=== PATIENT | female | born 1995 | race Hispanic/Latino ===

== ENCOUNTER 2018-11-09 13:39 | Emergency (ER) | payer SELFPAY ==
--- OUTSIDE RECORDS SUMMARY | 2018-11-09 13:41 | XMS REPORT ---
:1995 [facility] Address [address] [place] [address] Dr. Mena [address] [place] [id number] Care Team Providers Name Role Phone Unavailable Unavailable Unavailable Problems This patient has no known problems. Allergies, Adverse Reactions, Alerts This patient has no known allergies or adverse reactions. Medications This patient has no known medications.
[2018-11-09 15:17] LABS: Urine Blood NEGATIVE (NEG); Urine Glucose NEGATIVE (NEG); Urine Protein 2+ (NEG); Urine Specific Gravity 1.015 (1.005-1.030); Urine pH 6.5 (5.0-7.0)
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
[2018-11-09 16:55] VITALS: TEMP 98.5
[2018-11-09 16:56] VITALS: BP 106/71; O2SAT 100
== END 2018-11-09 16:19 | disposition home or self-care (01) ==
LOC: ER 13:39
DX: O26.891 Other specified pregnancy related conditions, first trimester (principal); S80.211A Abrasion, right knee, initial encounter; V03.00XA Pedestrian on foot injured in collision with car, pick-up truck or van in nontraffic accident, initial encounter; Y93.01 Activity, walking, marching and hiking; Y92.481 Parking lot as the place of occurrence of the external cause; Z3A.13 13 weeks gestation of pregnancy
CPT/HCPCS: 76801; 81003; 81025; 99284

== ENCOUNTER 2021-10-01 11:33 | Emergency (ER) | payer BC, SELFPAY ==
--- OUTSIDE RECORDS SUMMARY | 2021-10-01 11:39 | XMS REPORT | Continuity of Care Document ---
:1995 Author Organization [facility] t Address [address] [place] [address] Care Team Providers Name Role Phone Vivian BARRIGA Attending Clinician Unavailable Konrad Baker Attending Clinician Unavailable Gutierrez Hopper DO Attending Clinician Konrad CHU Attending Clinician Unavailable Paris GOMEZ Attending Clinician Unavailable Anene STRAPPER OPERATOR Attending Clinician [address] Attending Clinician Unavailable Kalie Fields Attending Clinician Kalie DOLAN Attending Clinician Unavailable Birdie STRAPPER OPERATOR Attending Clinician Nithya STRAPPER OPERATOR, N Attending Clinician AKINKARSTEN C Attending Clinician Unavailable Rey VALE, July Attending Clinician Vlad ARCEO, R Attending Clinician Enrrique RUTLEDGE C Attending Clinician Екатерина Hopper MD Attending Clinician Doctor Unassigned, Name Attending Clinician Unavailable Morgan VALE Attending Clinician Reddy VALE M Attending Clinician MORGAN Attending Clinician Unavailable Ultrasound Attending Clinician Unavailable Konrad Kraft Attending Clinician Lab Attending Clinician Unavailable Zain Admitting Clinician Unavailable Екатерина Hopper MD Admitting Clinician Екатерина Blakely MD Admitting Clinician Екатерина BLAKELY Admitting Clinician Unavailable Payers Payer Name Policy Type Policy Number Effective Date Expiration Date Ofe [employer] HMO [id number] 2019 00:00:00 FAMILY PLANNING [id number] 2019 MARTINEZ 0-100% 00:00:00 Problems Condition Condition Condition Status Onset Resolution Last Treating Co mments Source Name Details Category Date Date Treatment Clinician Date Disease Active 2020-0 U nivers anemia anemia 3-13 ity of 00:00: [place] [address] [facility] [place] Encounter Encounter Disease Active 2020-0 Uni vers for for 3-13 ity of initial initial 00:00: [place] prescripti prescripti 00 Me dical on of on of Branch contracept contracept aldo pills aldo pills Anemia of Anemia of Disease Active 2019-0 Uni vers mother in mother in 1-29 ity of , , [place] 00 [facility] with with Branch condition condition Uterine Uterine Disease Active 2019-0 Univers contractio contractio 1-28 [place] 00:[place] 00 [facility] 39 weeks 39 weeks Disease Active 2020-0 Unive rs gestation gestation 1-28 ity of of of 00:00: [place] 00 [facility] Single Single Disease Active 2020-0 Univers live live 1-28 ity of 00:00: [address] First First Disease Active 2020-0 Univers degree degree 1-28 ity of laceration laceration 00:[place] of of 00 [facility] perineum perineum Branch during during delivery, delivery, Obesity Obesity Disease Active 2018-04 Univers (BMI (BMI 1-18 ity of 30-39.9) 30-39.9) 00:00: [address] Flu Flu Disease Active 2018-04 Overview: Univer s vaccine vaccine 1-12 Received ity of need need 00:00: today [address] Vaginal Vaginal Disease Active 2018-04 Univers bleeding bleeding 0-30 ity of in in 00:00: [place] 00 [facility] Pain of Pain of Disease Active 2019- Univers round round 9-04 ity of ligament ligament 00:00: [place] affecting affecting 00 [facility] , , Br anch antepartum antepartum Suspected Suspected Disease Active Overview: Univers UTI UTI 6-10 Per ity of 00:00: [place] 00 chao [facility] Supervisio Supervisio Disease Active U nivers n of n of 5-28 ity of high-risk high-risk 00:[place] [facility] Multiparit Multiparit Disease Active U nivers y y 5-28 ity of 00:00: [place] 00 [facility] Obesity in Obesity in Disease Active U nivers 5-15 ity of 00:00: [address] Disease Active Overview: Univer s (normal (normal 2-18 Post term ity o f spontaneou spontaneou 00:00: [place] vaginal s vaginal 00 ; [facility] delivery) delivery) periureth B ranch ral lac repaired Allergies, Adverse Reactions, Alerts Allergy Allergy Status Severity Reaction(s) Onset Inactive Treating Comm ents Source Name Type Date Date Clinician No Known DA Active [facility] 8[facility]03 [place] [facility] No Known DA Active U [facility] All[facility]ie 8-03 [place] 00:[facility] NO KNOWN Drug Active Univers ALLERGIE Class ity of S [facility] Social History Social Habit Start Date Stop Date Quantity Comments Source ASSERTION 2018-08-27 University of 00:00:00 [facility] Tobacco use and 2020-05-26 2020-05-26 Never used Universit y of exposure 00:00:00 00:00:00 [facility] Alcohol intake 2020-05-26 2020-05-26 Current University of 00:00:00 00:00:00 non-drinker of [facility] [place] [facility] alcohol Branch (finding) Alcohol Comment 2017-08-29 2017-08-29 on occasion Universi ty of 00:00:00 00:00:00 [facility] Tobacco Comment 2012-12-18 2012-12-18 dad smokes Universit y of 00:00:00 00:00:00 outside house [facility] Sex Ass[birth year] At [birth year] Universit y of 00:00:00 00:00:00 [facility] Smoking Status Start Date Stop Date Source Never smoker [facility] Medications Ordered Filled Start Stop Current Ordering Indication Dosage Frequency Signature Comments Components Source Medication Medication Date Date Medication? Clinician (SIG) Name Name jessica 2019- No [id number] 5mL Take 5 mL Univers mine-pseudo 4-13 by mouth 4 i ty of ephedrine-D 00:00: 04:59 (four) [place] as M (BROMFED 00 :00 times Medical DM) 2-30-10 daily as Bran ch mg/5 mL needed for syrup Cold symptoms or Cough for up to 10 days. bromphenira 2020-0 2019- No [id number] 5mL Take 5 mL Univers mine-pseudo 4-13 by mouth 4 i ty of ephedrine-D 00:00: 04:59 (four) [place] as M (BROMFED 00 :00 times Medical DM) 2-30-10 daily as Bran ch mg/5 mL needed for syrup Cold symptoms or Cough for up to 10 days. bromphenira 2019-0 2019- No [id number] 5mL Take 5 mL Univers mine-pseudo 4-05 21-13 by mouth 4 i ty of ephedrine-D 00:00: 04:59 (four) [place] as M (BROMFED 00 :00 times Medical DM) 2-30-10 daily as Bran ch mg/5 mL needed for syrup Cold symptoms or Cough for up to 10 days. bromphenira 2019-0 2019- No [id number] 5mL Take 5 mL Univers mine-pseudo -13 by mouth 4 i ty of ephedrine-D 00:00: 04:59 (four) [place] as M (BROMFED 00 :00 times Medical DM) 2-30-10 daily as Bran ch mg/5 mL needed for syrup Cold symptoms or Cough for up to 10 days. bromphenira 2020-0 2019- No [id number] 5mL Take 5 mL Univers mine-pseudo 4-05 21-13 by mouth 4 i ty of ephedrine-D 00:00: 04:59 (four) [place] M (BROMFED 00 :00 times Medical DM) 2-30-10 daily as Bran ch mg/5 mL needed for syrup Cold symptoms or Cough for up to 10 days. norethindro 2020-0 Yes [id number] 1{tbl} Take 1 Univers ne 0.35 mg 3-13 tablet by ity of tablet 00:00: mouth [place] 00 daily. [facility] norethindro 2020-0 Yes [id number] 1{tbl} Take 1 Univers ne 0.35 mg 3-13 tablet by ity of tablet 00:00: mouth [place] 00 daily. [facility] norethindro 2020-0 Yes [id number] 1{tbl} Take 1 Univers ne 0.35 mg 3-13 tablet by ity of tablet 00:00: mouth [place] 00 daily. [facility] norethindro 2020-0 Yes [id number] 1{tbl} Take 1 Univers ne 0.35 mg 3-13 tablet by ity of tablet 00:00: mouth [place] 00 daily. [facility] norethindro 2020-0 Yes [id number] 1{tbl} Take 1 Univers ne 0.35 mg 3-13 tablet by ity of tablet 00:00: mouth [place] 00 daily. [facility] norethindro 2020-0 Yes [id number] 1{tbl} Take 1 Univers ne 0.35 mg 3-13 tablet by ity of tablet 00:00: mouth [place] 00 daily. [facility] norethindro 2020-0 Yes [id number] 1{tbl} Take 1 Univers ne 0.35 mg 3-13 tablet by ity of tablet 00:00: mouth [place] 00 daily. [facility] norethindro 2020-0 Yes [id number] 1{tbl} Take 1 Univers ne 0.35 mg 3-13 tablet by ity of tablet 00:00: mouth [place] 00 daily. [facility] norethindro 2020-0 Yes [id number] 1{tbl} Take 1 Univers ne 0.35 mg 3-13 tablet by ity of tablet 00:00: mouth [place] 00 daily. [facility] norethindro 2020-0 Yes [id number] 1{tbl} Take 1 Univers ne 0.35 mg 3-13 tablet by ity of tablet 00:00: mouth [place] 00 daily. [facility] rho(D) 2020-0 Yes 300ug 300 mcg, Univer s immune 1-29 Intramuscu ity of globulin 06:23: lar, ONCE, [place] as (RHOGAM) 16 For 1 Medical syringe 300 dose, Branch mcg Conditiona l, Routine ibuprofen 2020-0 Yes 600mg 600 mg, Univ ers (IBU) 05-15 Oral, ity of tablet 600 06:23: Q6HPRN, [place] mg 12 Starting Medical Wed Branch 05/15/19 at 0023, Until Discontinu ed, Routine, Pain (scale 4-6) acetaminoph 2020-0 Yes 650mg 650 mg, Un sixto en 05-15 Oral, ity of (TYLENOL) 06:23: Q6HPRN, [place] tablet 650 12 Starting Medic al mg Wed Branch 05/15/19 at 0023, Until Discontinu ed, Routine, Pain (scale 1-3) diphenhydrA 2020-0 Yes 25mg 25 mg, Univ ers MINE 05-15 Oral, ity of (BENADRYL) 06:23: Q6HPRN, [place] tablet 25 12 Starting Medica l mg Wed Branch 05/15/19 at 0023, Until Discontinu ed, Routine, Sleep, Itching ondansetron 2020-0 Yes 4mg 4 mg, Slow Univers (ZOFRAN 05-15 IV Push, ity of (PF)) 06:23: Q8HPRN, [place] injection 4 12 Starting Medi flavio mg Wed Branch 05/15/19 at 0023, Until Discontinu ed, Routine, Nausea and Vomiting (N/V) simethicone 2020-0 Yes 160mg 160 mg, Un sixto (GAS RELIEF 05-15 Oral, ity of (SIMETHICON 06:23: PC+HSPRN, [place] E)) 12 Starting Medical chewable Wed Branch tablet 160 05/15/19 at mg 0023, Until Discontinu ed, Routine, Gas docusate 2020-0 Yes 240mg 240 mg, Unive rs calcium 05-15 Oral, ity of (SURFAK) 06:23: QDAILYPRN, [place] capsule 240 12 Starting Medi flavio mg Wed Branch 05/15/19 at 0023, Until Discontinu ed, Routine, Constipati on magnesium 2020-0 Yes 30mL 30 mL, Univer s hydroxide 05-15 Oral, ity of (MILK OF 06:23: QDAILYPRN, [place] as MAGNESIA) 12 Starting Medica l 400 mg/5 mL Wed Branch suspension 1/29/20 at 30 mL 0023, Until Discontinu ed, Routine, Constipati on benzocaine- 2020-0 Yes Topical, Un sixto menthol 1-29 PRN, ity of (DERMOPLAST 06:23: [place] 20-0.5 % 12 Wed Medical topical 05/15/19 at Branch spray 0023, Until Discontinu ed, Routine, Perineum discomfort docusate 2020-0 Yes [id number] 240mg Take 1 Un sixto calcium 240 1-29 capsule by it y of mg capsule 00:00: mouth [place] 00 daily as Medical needed for Branch Constipati on. ibuprofen 2020-0 Yes [id number] 600mg Take 1 U nivers 600 mg 1-29 tablet by ity of tablet 00:00: mouth [place] 00 every 6 Medical (six) Branch hours as needed (Pain). Take with food or milk. Iron Fum & 2020-0 Yes [id number] 1{capsu Take 1 Univers P-FA-Vit B 1-29 le} capsule by ity of & C No.9 00:00: mouth [place] (INTEGRA 00 daily. Medical PLUS) 125 Branch mg iron- 1 mg Cap docusate 2020-0 Yes [id number] 240mg Take 1 Un sixto calcium 240 1-29 capsule by it y of mg capsule 00:00: mouth [place] 00 daily as Medical needed for Branch Constipati on. ibuprofen 2020-0 Yes [id number] 600mg Take 1 U nivers 600 mg 1-29 tablet by ity of tablet 00:00: mouth [place] 00 every 6 Medical (six) Branch hours as needed (Pain). Take with food or milk. Iron Fum & 2020-0 Yes [id number] 1{capsu Take 1 Univers P-FA-Vit B 1-29 le} capsule by ity of & C No.9 00:00: mouth [place] (INTEGRA 00 daily. Medical PLUS) 125 Branch mg iron- 1 mg Cap docusate 2020-0 Yes [id number] 240mg Take 1 Un sixto calcium 240 1-29 capsule by it y of mg capsule 00:00: mouth [place] 00 daily as Medical needed for Branch Constipati on. ibuprofen 2020-0 Yes [id number] 600mg Take 1 U nivers 600 mg 1-29 tablet by ity of tablet 00:00: mouth [place] 00 every 6 Medical (six) Branch hours as needed (Pain). Take with food or milk. Iron Fum & 2020-0 Yes [id number] 1{capsu Take 1 Univers P-FA-Vit B 1-29 le} capsule by ity of & C No.9 00:00: mouth [place] (INTEGRA 00 daily. Medical PLUS) 125 Branch mg iron- 1 mg Cap docusate 2020-0 Yes [id number] 240mg Take 1 Un sixto calcium 240 1-29 capsule by it y of mg capsule 00:00: mouth [place] 00 daily as Medical needed for Branch Constipati on. ibuprofen 2020-0 Yes [id number] 600mg Take 1 U nivers 600 mg 1-29 tablet by ity of tablet 00:00: mouth [place] 00 every 6 Medical (six) Branch hours as needed (Pain). Take with food or milk. Iron Fum & 2020-0 Yes [id number] 1{capsu Take 1 Univers P-FA-Vit B 1-29 le} capsule by ity of & C No.9 00:00: mouth [place] (INTEGRA 00 daily. Medical PLUS) 125 Branch mg iron- 1 mg Cap docusate 2020-0 Yes [id number] 240mg Take 1 Un sixto calcium 240 1-29 capsule by it y of mg capsule 00:00: mouth [place] 00 daily as Medical needed for Branch Constipati on. ibuprofen 2020-0 Yes [id number] 600mg Take 1 U nivers 600 mg 1-29 tablet by ity of tablet 00:00: mouth [place] 00 every 6 Medical (six) Branch hours as needed (Pain). Take with food or milk. Iron Fum & 2020-0 Yes [id number] 1{capsu Take 1 Univers P-FA-Vit B 1-29 le} capsule by ity of & C No.9 00:00: mouth [place] (INTEGRA 00 daily. Medical PLUS) 125 Branch mg iron- 1 mg Cap docusate 2020-0 Yes [id number] 240mg Take 1 Un sixto calcium 240 1-29 capsule by it y of mg capsule 00:00: mouth once [place] 00 daily as Medical needed for Branch Constipati on. ibuprofen 2020-0 Yes [id number] 600mg Take 1 U nivers 600 mg 1-29 tablet by ity of tablet 00:00: mouth [place] 00 every 6 Medical (six) Branch hours as needed (Pain). Take with food or milk. Iron Fum & 2020-0 Yes [id number] 1{capsu Take 1 Univers P-FA-Vit B 1-29 le} capsule by ity of & C No.9 00:00: mouth [place] (INTEGRA 00 daily. Medical PLUS) 125 Branch mg iron- 1 mg Cap docusate 2020-0 Yes [id number] 240mg Take 1 Un sixto calcium 240 1-29 capsule by it y of mg capsule 00:00: mouth once [place] 00 daily as Medical needed for Branch Constipati on. ibuprofen 2020-0 Yes [id number] 600mg Take 1 U nivers 600 mg 1-29 tablet by ity of tablet 00:00: mouth [place] 00 every 6 Medical (six) Branch hours as needed (Pain). Take with food or milk. Iron Fum & 2020-0 Yes [id number] 1{capsu Take 1 Univers P-FA-Vit B 1-29 le} capsule by ity of & C No.9 00:00: mouth [place] (INTEGRA 00 daily. Medical PLUS) 125 Branch mg iron- 1 mg Cap docusate 2020-0 Yes [id number] 240mg Take 1 Un sixto calcium 240 1-29 capsule by it y of mg capsule 00:00: mouth once [place] 00 daily as Medical needed for Branch Constipati on. ibuprofen 2020-0 Yes [id number] 600mg Take 1 U nivers 600 mg 1-29 tablet by ity of tablet 00:00: mouth [place] 00 every 6 Medical (six) Branch hours as needed (Pain). Take with food or milk. Iron Fum & 2020-0 Yes [id number] 1{capsu Take 1 Univers P-FA-Vit B 1-29 le} capsule by ity of & C No.9 00:00: mouth [place] (INTEGRA 00 daily. Medical PLUS) 125 Branch mg iron- 1 mg Cap docusate 2020-0 Yes [id number] 240mg Take 1 Un sixto calcium 240 1-29 capsule by it y of mg capsule 00:00: mouth once [place] 00 daily as Medical needed for Branch Constipati on. ibuprofen 2020-0 Yes [id number] 600mg Take 1 U nivers 600 mg 1-29 tablet by ity of tablet 00:00: mouth [place] 00 every 6 Medical (six) Branch hours as needed (Pain). Take with food or milk. Iron Fum & 2020-0 Yes [id number] 1{capsu Take 1 Univers P-FA-Vit B 1-29 le} capsule by ity of & C No.9 00:00: mouth [place] (INTEGRA 00 daily. Medical PLUS) 125 Branch mg iron- 1 mg Cap docusate 2020-0 Yes [id number] 240mg Take 1 Un sixto calcium 240 1-29 capsule by it y of mg capsule 00:00: mouth once [place] 00 daily as Medical needed for Branch Constipati on. ibuprofen 2020-0 Yes [id number] 600mg Take 1 U nivers 600 mg 1-29 tablet by ity of tablet 00:00: mouth [place] 00 every 6 Medical (six) Branch hours as needed (Pain). Take with food or milk. Iron Fum & 2020-0 Yes [id number] 1{capsu Take 1 Univers P-FA-Vit B 1-29 le} capsule by ity of & C No.9 00:00: mouth [place] (INTEGRA 00 daily. Medical PLUS) 125 Branch mg iron- 1 mg Cap docusate 2020-0 Yes [id number] 240mg Take 1 Un sixto calcium 240 1-29 capsule by it y of mg capsule 00:00: mouth once [place] 00 daily as Medical needed for Branch Constipati on. ibuprofen 2020-0 Yes [id number] 600mg Take 1 U nivers 600 mg 1-29 tablet by ity of tablet 00:00: mouth [place] 00 every 6 Medical (six) Branch hours as needed (Pain). Take with food or milk. Iron Fum & 2020-0 Yes [id number] 1{capsu Take 1 Univers P-FA-Vit B 1-29 le} capsule by ity of & C No.9 00:00: mouth [place] (INTEGRA 00 daily. Medical PLUS) 125 Branch mg iron- 1 mg Cap docusate 2020-0 Yes [id number] 240mg Take 1 Un sixto calcium 240 1-29 capsule by it y of mg capsule 00:00: mouth once [place] 00 daily as Medical needed for Branch Constipati on. ibuprofen 2020-0 Yes [id number] 600mg Take 1 U nivers 600 mg 1-29 tablet by ity of tablet 00:00: mouth [place] 00 every 6 Medical (six) Branch hours as needed (Pain). Take with food or milk. Iron Fum & 2020-0 Yes [id number] 1{capsu Take 1 Univers P-FA-Vit B 1-29 le} capsule by ity of & C No.9 00:00: mouth [place] (INTEGRA 00 daily. Medical PLUS) 125 Branch mg iron- 1 mg Cap docusate 2020-0 Yes [id number] 240mg Take 1 Un sixto calcium 240 1-29 capsule by it y of mg capsule 00:00: mouth once [place] 00 daily as Medical needed for Branch Constipati on. ibuprofen 2020-0 Yes [id number] 600mg Take 1 U nivers 600 mg 1-29 tablet by ity of tablet 00:00: mouth [place] 00 every 6 Medical (six) Branch hours as needed (Pain). Take with food or milk. Iron Fum & 2020-0 Yes [id number] 1{capsu Take 1 Univers P-FA-Vit B 1-29 le} capsule by ity of & C No.9 00:00: mouth [place] (INTEGRA 00 daily. Medical PLUS) 125 Branch mg iron- 1 mg Cap docusate 2020-0 Yes [id number] 240mg Take 1 Un sixto calcium 240 1-29 capsule by it y of mg capsule 00:00: mouth once [place] 00 daily as Medical needed for Branch Constipati on. ibuprofen 2020-0 Yes [id number] 600mg Take 1 U nivers 600 mg 1-29 tablet by ity of tablet 00:00: mouth [place] 00 every 6 Medical (six) Branch hours as needed (Pain). Take with food or milk. Iron Fum & 2020-0 Yes [id number] 1{capsu Take 1 Univers P-FA-Vit B 1-29 le} capsule by ity of & C No.9 00:00: mouth [place] (INTEGRA 00 daily. Medical PLUS) 125 Branch mg iron- 1 mg Cap docusate 2020-0 Yes [id number] 240mg Take 1 Un sixto calcium 240 1-29 capsule by it y of mg capsule 00:00: mouth once [place] 00 daily as Medical needed for Branch Constipati on. ibuprofen 2020-0 Yes [id number] 600mg Take 1 U nivers 600 mg 1-29 tablet by ity of tablet 00:00: mouth [place] 00 every 6 Medical (six) Branch hours as needed (Pain). Take with food or milk. Iron Fum & 2020-0 Yes [id number] 1{capsu Take 1 Univers P-FA-Vit B 1-29 le} capsule by ity of & C No.9 00:00: mouth [place] (INTEGRA 00 daily. Medical PLUS) 125 Branch mg iron- 1 mg Cap docusate 2020-0 Yes [id number] 240mg Take 1 Un sixto calcium 240 1-29 capsule by it y of mg capsule 00:00: mouth once [place] 00 daily as Medical needed for Branch Constipati on. ibuprofen 2020-0 Yes [id number] 600mg Take 1 U nivers 600 mg 1- tablet by ity of tablet 00:00: mouth [place] 00 every 6 Medical (six) Branch hours as needed (Pain). Take with food or milk. Iron Fum & 2020-0 Yes [id number] 1{capsu Take 1 Univers P-FA-Vit B - le} capsule by ity of & C No.9 00:00: mouth [place] (INTEGRA 00 daily. Medical PLUS) 125 Branch mg iron- 1 mg Cap [id number] IV 2020-0 2020- No 1000mL at 125 Uni vers infusion 05-14 mL/hr, IV ity o f 1,000 mL 18:30: 06:23 Infusion, [place] as 00 :16 CONTINUOUS Medical , Starting Branch 05/14/19 at 1230, Until 05/15/19 at 0023, Routine lactated 2019-0 2020- No 500mL at 999 Unive rs ringers IV 05-14 mL/hr, 500 it y of infusion 18:27: 18:32 mL, IV [place] 500 mL 41 :00 Infusion, Medical PRN - SEE Branch INSTRUCTIO NS, 1 dose, Starting 05/14/19 at 1227, Until 05/14/19 at 1232, Routine sodium 2020-0 2020- No 30mL 30 mL, Univers citrate-cit 05-14 Oral, ity of carlos acid 18:27: 18:37 PRE-PROCED [place] (BICITRA) 07 :00 URE ONCE, Medic al [id number] 1 dose, Branch mg/5 mL Starting solution 30 Tue mL 05/14/19 at 1227, Until 05/14/19 at 1237, Routine, Surgery/Pr ocedure PNV 67-iron 2019-0 Yes [id number] 1{each} Take 1 Univers ps-folate 6-25 Each by ity of no.1-dha 00:00: mouth [place] (VITAFOL 00 daily. Medical ULTRA) 29 Branch mg iron- 1 mg-200 mg Cap PNV 67-iron 2019-0 Yes [id number] 1{each} Take 1 Univers ps-folate 6-25 Each by ity of no.1-dha 00:00: mouth [place] (VITAFOL 00 daily. Medical ULTRA) 29 Branch mg iron- 1 mg-200 mg Cap PNV 67-iron 2019-0 Yes [id number] 1{each} Take 1 Univers ps-folate 6-25 Each by ity of no.1-dha 00:00: mouth [place] (VITAFOL 00 daily. Medical ULTRA) 29 Branch mg iron- 1 mg-200 mg Cap PNV 67-iron 2019-0 Yes [id number] 1{each} Take 1 Univers ps-folate 6-25 Each by ity of no.1-dha 00:00: mouth [place] (VITAFOL 00 daily. Medical ULTRA) 29 Branch mg iron- 1 mg-200 mg Cap PNV 67-iron 2019-0 Yes [id number] 1{each} Take 1 Univers ps-folate 6-25 Each by ity of no.1-dha 00:00: mouth [place] (VITAFOL 00 daily. Medical ULTRA) 29 Branch mg iron- 1 mg-200 mg Cap PNV 67-iron 2019-0 Yes [id number] 1{each} Take 1 Univers ps-folate 6-25 Each by ity of no.1-dha 00:00: mouth [place] (VITAFOL 00 daily. Medical ULTRA) 29 Branch mg iron- 1 mg-200 mg Cap PNV 67-iron 2019-0 Yes [id number] 1{each} Take 1 Univers ps-folate 6-25 Each by ity of no.1-dha 00:00: mouth [place] (VITAFOL 00 daily. Medical ULTRA) 29 Branch mg iron- 1 mg-200 mg Cap PNV 67-iron 2019-0 Yes [id number] 1{each} Take 1 Univers ps-folate 6-25 Each by ity of no.1-dha 00:00: mouth [place] (VITAFOL 00 daily. Medical ULTRA) 29 Branch mg iron- 1 mg-200 mg Cap PNV 67-iron 2019-0 Yes [id number] 1{each} Take 1 Univers ps-folate 6-25 Each by ity of no.1-dha 00:00: mouth [place] (VITAFOL 00 daily. Medical ULTRA) 29 Branch mg iron- 1 mg-200 mg Cap PNV 67-iron 2019-0 Yes [id number] 1{each} Take 1 Univers ps-folate 6-25 Each by ity of no.1-dha 00:00: mouth [place] (VITAFOL 00 daily. Medical ULTRA) 29 Branch mg iron- 1 mg-200 mg Cap PNV 67-iron 2019-0 Yes [id number] 1{each} Take 1 Univers ps-folate 6-25 Each by ity of no.1-dha 00:00: mouth [place] (VITAFOL 00 daily. Medical ULTRA) 29 Branch mg iron- 1 mg-200 mg Cap PNV 67-iron 2019-0 Yes [id number] 1{each} Take 1 Univers ps-folate 6-25 Each by ity of no.1-dha 00:00: mouth [place] (VITAFOL 00 daily. Medical ULTRA) 29 Branch mg iron- 1 mg-200 mg Cap PNV 67-iron 2019-0 Yes [id number] 1{each} Take 1 Univers ps-folate 6-25 Each by ity of no.1-dha 00:00: mouth [place] (VITAFOL 00 daily. Medical ULTRA) 29 Branch mg iron- 1 mg-200 mg Cap PNV 67-iron 2019-0 Yes [id number] 1{each} Take 1 Univers ps-folate 6-25 Each by ity of no.1-dha 00:00: mouth [place] (VITAFOL 00 daily. Medical ULTRA) 29 Branch mg iron- 1 mg-200 mg Cap PNV 67-iron 2019-0 Yes [id number] 1{each} Take 1 Univers ps-folate 6-25 Each by ity of no.1-dha 00:00: mouth [place] (VITAFOL 00 daily. Medical ULTRA) 29 Branch mg iron- 1 mg-200 mg Cap PNV 67-iron 2019-0 2020- No [id number] 1{each} Take 1 Univers ps-folate 6-25 -29 Each by ity of no.1-dha 00:00: 00:00 mouth [place] (VITAFOL 00 :00 daily. Medical ULTRA) 29 Branch mg iron- 1 mg-200 mg Cap Nitrofurant 2019-0 Yes [id number] 100mg Take 1 Univers oin&Nit. 6-10 capsule by ity o f Macrocryst 00:00: mouth [place] (MACROBID) 00 (two) Medical 100 mg times Branch capsule daily. Nitrofurant Yes [id number] 100mg Take 1 Univers oin&Nit. 6-10 capsule by ity o f Macrocryst 00:00: mouth [place] (MACROBID) 00 (two) Medical 100 mg times Branch capsule daily. Nitrofurant Yes [id number] 100mg Take 1 Univers oin&Nit. 6-10 capsule by ity o f Macrocryst 00:00: mouth [place] (MACROBID) 00 (two) Medical 100 mg times Branch capsule daily. Nitrofurant Yes [id number] 100mg Take 1 Univers oin&Nit. 6-10 capsule by ity o f Macrocryst 00:00: mouth [place] (MACROBID) 00 (two) Medical 100 mg times Branch capsule daily. Nitrofurant Yes [id number] 100mg Take 1 Univers oin&Nit. 6-10 capsule by ity o f Macrocryst 00:00: mouth [place] (MACROBID) 00 (two) Medical 100 mg times Branch capsule daily. Nitrofurant Yes [id number] 100mg Take 1 Univers oin&Nit. 6-10 capsule by ity o f Macrocryst 00:00: mouth [place] (MACROBID) 00 (two) Medical 100 mg times Branch capsule daily. Nitrofurant Yes [id number] 100mg Take 1 Univers oin&Nit. 6-10 capsule by ity o f Macrocryst 00:00: mouth [place] (MACROBID) 00 (two) Medical 100 mg times Branch capsule daily. Nitrofurant Yes [id number] 100mg Take 1 Univers oin&Nit. 6-10 capsule by ity o f Macrocryst 00:00: mouth [place] (MACROBID) 00 (two) Medical 100 mg times Branch capsule daily. Nitrofurant Yes [id number] 100mg Take 1 Univers oin&Nit. 6-10 capsule by ity o f Macrocryst 00:00: mouth [place] (MACROBID) 00 (two) Medical 100 mg times Branch capsule daily. Nitrofurant Yes [id number] 100mg Take 1 [facility]it. 6-10 capsule by [facility]y [place] (two) Medical 100 mg times Branch capsule daily. Nitrofurant Yes [id number] 100mg Take 1 [facility] oin&Nit. 6-10 capsule by [facility] [place] (two) Medical 100 mg times Branch capsule daily. Nitrofurant Yes [id number] 100mg Take 1 [facility] oin&Nit. 6-10 capsule by [facility] [place] (two) Medical 100 mg times Branch capsule daily. Nitrofurant Yes [id number] 100mg Take 1 [facility] oin&Nit. 6-10 capsule by [facility] [place] (two) Medical 100 mg times Branch capsule daily. Nitrofurant Yes [id number] 100mg Take 1 [facility] oin[facility]Nit. 6-10 capsule by [facility] [place] (two) Medical 100 mg times Branch capsule daily. Nitrofurant Yes [id number] 100mg Take 1 [facility] o[facility]&Nit. 6-10 capsule by [facility] [place] (two) Medical 100 mg times Branch capsule daily. Nitrofurant 2020- No [id number] 100mg Take 1 [facility] oin&Nit. 6-10 -29 capsule by ity of Macrocryst 00:00: 00:00 mouth 2 [place] (MACROBID) 00 :00 (two) Medical 100 mg times Branch capsule daily. norgestimat Yes [id number] 1{tbl} Take 1 Univers e-ethinyl 1-31 tablet by ity o f estradiol 00:00: mouth [place] 0.25-35 00 daily. Medical mg-mcg per Branch tablet norgestimat Yes [id number] 1{tbl} Take 1 Univers e-ethinyl 1-31 tablet by ity o f estradiol 00:00: mouth [place] 0.25-35 00 daily. Medical mg-mcg per Branch tablet norgestimat 2019 Yes [id number] 1{tbl} Take 1 Univers e-ethinyl 1-31 tablet by ity o f estradiol 00:00: mouth [place] 0.25-35 00 daily. Medical mg-mcg per Branch tablet norgestimat Yes [id number] 1{tbl} Take 1 Univers e-ethinyl 1-31 tablet by ity o f estradiol 00:00: mouth [place] 0.25-35 00 daily. Medical mg-mcg per Branch tablet norgestimat Yes [id number] 1{tbl} Take 1 [facility] e-ethinyl 1-31 tablet by ity o f estradiol 00:00: mouth [place] 0.25-35 00 daily. Medical mg-mcg per Branch tablet norgestimat Yes [id number] 1{tbl} Take 1 [facility] e-ethinyl 1-31 tablet by ity o f estradiol 00:00: mouth [place] 0.25-35 00 daily. Medical mg-mcg per Branch tablet norgestimat Yes [id number] 1{tbl} Take 1 [facility] e-ethinyl 1-31 tablet by ity o f estradiol 00:00: mouth [place] 0.25-35 00 daily. Medical mg-mcg per Branch tablet norgestimat 2018- Yes [id number] 1{tbl} Take 1 [facility] e-ethinyl 1-31 tablet by ity o f estradiol 00:00: mouth [place] 0.25-35 00 daily. Medical mg-mcg per Branch tablet norgestimat 2018- Yes [id number] 1{tbl} Take 1 Univers e-ethinyl 1-31 tablet by ity o f estradiol 00:00: mouth [place] 0.25-35 00 daily. Medical mg-mcg per Branch tablet norgestimat 2018- Yes [id number] 1{tbl} Take 1 Univers e-ethinyl 1-31 tablet by ity o f estradiol 00:00: mouth [place] 0.25-35 00 daily. Medical mg-mcg per Branch tablet norgestimat 2018- Yes [id number] 1{tbl} Take 1 Univers e-ethinyl 1-31 tablet by ity o f estradiol 00:00: mouth [place] 0.25-35 00 daily. Medical mg-mcg per Branch tablet norgestimat 2019 Yes [id number] 1{tbl} Take 1 Univers e-ethinyl 1-31 tablet by ity o f estradiol 00:00: mouth [place] 0.25-35 00 daily. Medical mg-mcg per Branch tablet norgestimat 2019 Yes [id number] 1{tbl} Take 1 Univers e-ethinyl 1-31 tablet by ity o f estradiol 00:00: mouth [place] 0.25-35 00 daily. Medical mg-mcg per Branch tablet norgestimat 2019 Yes [id number] 1{tbl} Take 1 Univers e-ethinyl 1-31 tablet by ity o f estradiol 00:00: mouth [place] 0.25-35 00 daily. Medical mg-mcg per Branch tablet norgestimat Yes [id number] 1{tbl} Take 1 Univers e-ethinyl 1-31 tablet by ity o f estradiol 00:00: mouth [place] 0.25-35 00 daily. Medical mg-mcg per Branch tablet norgestimat 2020- No [id number] 1{tbl} Take 1 Univers e-ethinyl 1-31 - tablet by ity of estradiol 00:00: 00:00 mouth [place] 0.25-35 00 :00 daily. Medical mg-mcg per Branch tablet Immunizations Ordered Immunization Filled Immunization Date Status Commen ts Source Name Name Influenza Virus 2019-02-26 Completed Universit y of Vaccine Quad .5 mL 00:00:00 [facility] 6+ MO Branch Tdap 2019-02-26 Completed University of 00:00:00 [facility] Influenza Virus 2019-02-26 Completed Universit y of Vaccine Quad .5 mL 00:00:00 [facility] IM 6+ MO Branch Tdap 2019-02-26 Completed University of 00:00:00 [facility] Influenza Virus 2019-02-26 Completed Universit y of Vaccine Quad .5 mL 00:00:00 [facility] 6+ MO Branch Tdap 2019-02-26 Completed University of 00:00:00 [facility] Influenza Virus 2019-02-26 Completed Universit y of Vaccine Quad .5 mL 00:00:00 [facility] 6+ MO Branch Tdap 2019-02-26 Completed University of 00:00:00 [facility] Influenza Virus 2019-02-26 Completed Universit y of Vaccine Quad .5 mL 00:00:00 [facility] IM 6+ MO Branch Tdap 2019-02-26 Completed University of 00:00:00 [facility] Influenza Virus 2019-02-26 Completed Universit y of Vaccine Quad .5 mL 00:00:00 [place] [facility] 6+ MO Branch Tdap 2019-02-26 Completed University of 00:00:00 [facility] Influenza Virus 2019-02-26 Completed Universit y of Vaccine Quad .5 mL 00:00:00 [place] [facility] 6+ MO Branch Tdap 2019-02-26 Completed University of 00:00:00 [facility] Influenza Virus 2019-02-26 Completed Universit y of Vaccine Quad .5 mL 00:00:00 [place] [facility] 6+ MO Branch Tdap 2019-02-26 Completed University of 00:00:00 [facility] Influenza Virus 2019-02-26 Completed Universit y of Vaccine [facility] .5 mL 00:00:00 [place] [facility] 6+ MO Branch Tdap 2019-02-26 Completed University of 00:00:00 [facility] Influenza Virus 2019-02-26 Completed Universit y of Vaccine Quad .5 mL 00:00:00 [place] [facility] 6+ MO Branch Tdap 2019-02-26 Completed University of 00:00:00 [facility] Influenza Virus 2019-02-26 Completed Universit y of Vaccine Quad .5 mL 00:00:00 [place] [facility] 6+ MO Branch Tdap 2019-02-26 Completed University of 00:00:00 [facility] Influenza Virus 2019-02-26 Completed Universit y of Vaccine Quad .5 mL 00:00:00 [place] [facility] 6+ MO Branch Tdap 2019-02-26 Completed University of 00:00:00 [facility] Influenza Virus 2019-02-26 Completed Universit y of Vaccine Quad .5 mL 00:00:00 [place] [facility] 6+ MO Branch Tdap 2019-02-26 Completed University of 00:00:00 [facility] Influenza Virus 2019-02-26 Completed Universit y of Vaccine Quad .5 mL 00:00:00 [place] [facility] 6+ MO Branch Tdap 2019-02-26 Completed University of 00:00:00 [facility] Influenza Virus 2019-02-26 Completed Universit y of Vaccine Quad .5 mL 00:00:00 [place] [facility] 6+ MO Branch Tdap 2019-02-26 Completed University of 00:00:00 [facility] Influenza Virus 2019-02-26 Completed Universit y of Vaccine Quad .5 mL 00:00:00 [facility] 6+ MO Branch Tdap 2019-02-26 Completed University of 00:00:00 [facility] Influenza Virus 2019-02-26 Completed Universit y of Vaccine Quad .5 mL 00:00:00 [facility] 6+ MO Branch Tdap 2019-02-26 Completed University of 00:00:00 [facility] Influenza Virus 2019-02-26 Completed Universit y of Vaccine Quad .5 mL 00:00:00 [facility] 6+ MO Branch Tdap 2019-02-26 Completed University of 00:00:00 [facility] Influenza Virus 2019-02-26 Completed Universit y of Vaccine Quad .5 mL 00:00:00 [facility] 6+ MO Branch Tdap 2019-02-26 Completed University of 00:00:00 [facility] Influenza Virus 2019-02-26 Completed Universit y of Vaccine Quad .5 mL 00:00:00 [facility] 6+ MO Branch Tdap 2019-02-26 Completed University of 00:00:00 [facility] Influenza Virus 2019-02-26 Completed Universit y of Vaccine Quad .5 mL 00:00:00 [facility] 6+ MO Branch TDAP 2019-02-26 Completed University of 00:00:00 [facility] Tdap 2014-05-08 Completed University of 00:00:00 [facility] Tdap 2014-05-08 Completed University of 00:00:00 [facility] Tdap 2014-05-08 Completed University of 00:00:00 [facility] Tdap 2014-05-08 Completed University of 00:00:00 [place] [facility] Tdap 2014-05-08 Completed University of 00:00:00 [facility] Tdap 2014-05-08 Completed University of 00:00:00 [facility] Branch Tdap 2014-05-08 Completed University of 00:00:00 [facility] Branch Tdap 2014-05-08 Completed University of 00:00:00 [facility] Tdap 2014-05-08 Completed University of 00:00:00 [facility] Tdap 2014-05-08 Completed University of 00:00:00 [facility] Tdap 2014-05-08 Completed University of 00:00:00 [facility] Branch Tdap 2014-05-08 Completed University of 00:00:00 [facility] Branch Tdap 2014-05-08 Completed University of 00:00:00 [facility] Branch Tdap 2014-05-08 Completed University of 00:00:00 [place] [facility] Tdap 2014-05-08 Completed University of 00:00:00 [place] [facility] Tdap 2014-05-08 Completed University of 00:00:00 [facility] Tdap 2014-05-08 Completed University of 00:00:00 [facility] Branch Tdap 2014-05-08 Completed University of 00:00:00 [facility] Branch Tdap 2014-05-08 Completed University of 00:00:00 [facility] Branch Tdap 2014-05-08 Completed University of 00:00:00 [facility] Branch Tdap 2014-05-08 Completed University of 00:00:00 [facility] Branch Tdap 2014-05-08 Completed University of 00:00:00 [facility] Tdap 2014-05-08 Completed University of 00:00:00 [facility] Tdap 2014-05-08 Completed University of 00:00:00 [facility] Tdap 2014-05-08 Completed University of 00:00:00 [facility] Branch Tdap 2014-05-08 Completed University of 00:00:00 [facility] Branch Tdap 2014-05-08 Completed University of 00:00:00 [facility] Branch Tdap 2014-05-08 Completed University of 00:00:00 [facility] Tdap 2014-05-08 Completed University of 00:00:00 [facility] TDAP 2014-05-08 Completed University of 00:00:00 [facility] Tdap 2014-05-08 Completed University of 00:00:00 [facility] Influenza Virus 2014-01-28 Completed Universit y of Vaccine (3+ yrs) 00:00:00 [facility] Influenza Virus 2014-01-28 Completed Universit y of Vaccine (3+ yrs) 00:00:00 [facility] Influenza Virus 2014-01-28 Completed Universit y of Vaccine (3+ yrs) 00:00:00 [facility] Influenza Virus 2014-01-28 Completed Universit y of Vaccine (3+ yrs) 00:00:00 [facility] Influenza Virus 2014-01-28 Completed Universit y of Vaccine (3+ yrs) 00:00:00 [facility] Influenza Virus 2014-01-28 Completed Universit y of Vaccine (3+ yrs) 00:00:00 [facility] Influenza Virus 2014-01-28 Completed Universit y of Vaccine (3+ yrs) 00:00:00 [facility] Influenza Virus 2014-01-28 Completed Universit y of Vaccine (3+ yrs) 00:00:00 [facility] Influenza Virus 2014-01-28 Completed Universit y of Vaccine (3+ yrs) 00:00:00 [facility] Influenza Virus 2014-01-28 Completed Universit y of Vaccine (3+ yrs) 00:00:00 [facility] Influenza Virus 2014-01-28 Completed Universit y of Vaccine (3+ yrs) 00:00:00 [facility] Influenza Virus 2014-01-28 Completed Universit y of Vaccine (3+ yrs) 00:00:00 [facility] Influenza Virus 2014-01-28 Completed Universit y of Vaccine (3+ yrs) 00:00:00 [facility] Influenza Virus 2014-01-28 Completed Universit y of Vaccine (3+ yrs) 00:00:00 [facility] Influenza Virus 2014-01-28 Completed Universit y of Vaccine (3+ yrs) 00:00:00 [facility] Influenza Virus 2014-01-28 Completed Universit y of Vaccine (3+ yrs) 00:00:00 [facility] Influenza Virus 2014-01-28 Completed Universit y of Vaccine (3+ yrs) 00:00:00 [facility] Influenza Virus 2014-01-28 Completed Universit y of Vaccine (3+ yrs) 00:00:00 [facility] Influenza Virus 2014-01-28 Completed Universit y of Vaccine (3+ yrs) 00:00:00 [facility] Influenza Virus 2014-01-28 Completed Universit y of Vaccine (3+ yrs) 00:00:00 [facility] Influenza Virus 2014-01-28 Completed Universit y of Vaccine (3+ yrs) 00:00:00 [facility] Influenza Virus 2014-01-28 Completed Universit y of Vaccine (3+ yrs) 00:00:00 [facility] Influenza Virus 2014-01-28 Completed Universit y of Vaccine (3+ yrs) 00:00:00 [facility] Influenza Virus 2014-01-28 Completed Universit y of Vaccine (3+ yrs) 00:00:00 [facility] Influenza Virus 2014-01-28 Completed Universit y of Vaccine (3+ yrs) 00:00:00 [facility] Influenza Virus 2014-01-28 Completed Universit y of Vaccine (3+ yrs) 00:00:00 [facility] Influenza Virus 2014-01-28 Completed Universit y of Vaccine (3+ yrs) 00:00:00 [facility] Influenza Virus 2014-01-28 Completed Universit y of Vaccine (3+ yrs) 00:00:00 [facility] Influenza Virus 2014-01-28 Completed Universit y of Vaccine (3+ yrs) 00:00:00 [facility] Influenza Virus 2014-01-28 Completed Universit y of Vaccine (3+ yrs) 00:00:00 [facility] Influenza Virus 2014-01-28 Completed Universit y of Vaccine (3+ yrs) 00:00:00 [facility] Meningococcal 2012-02-15 Completed University of Vaccine 00:00:00 [facility] Meningococcal 2012-02-15 Completed University of Vaccine 00:00:00 [facility] Meningococcal 2012-02-15 Completed University of Vaccine 00:00:00 [facility] Meningococcal 2012-02-15 Completed University of Vaccine 00:00:00 [facility] Meningococcal 2012-02-15 Completed University of Vaccine 00:00:00 [facility] Meningococcal 2012-02-15 Completed University of Vaccine 00:00:00 [facility] Meningococcal 2012-02-15 Completed University of Vaccine 00:00:00 [facility] Meningococcal 2012-02-15 Completed University of Vaccine 00:00:00 [facility] Meningococcal 2012-02-15 Completed University of Vaccine 00:00:00 [facility] Meningococcal 2012-02-15 Completed University of Vaccine 00:00:00 [facility] Meningococcal 2012-02-15 Completed University of Vaccine 00:00:00 [facility] Meningococcal 2012-02-15 Completed University of Vaccine 00:00:00 [facility] Meningococcal 2012-02-15 Completed University of Vaccine 00:00:00 [facility] Meningococcal 2012-02-15 Completed University of Vaccine 00:00:00 [facility] Meningococcal 2012-02-15 Completed University of Vaccine 00:00:00 [facility] Meningococcal 2012-02-15 Completed University of Vaccine 00:00:00 [facility] Meningococcal 2012-02-15 Completed University of Vaccine 00:00:00 [facility] Meningococcal 2012-02-15 Completed University of Vaccine 00:00:00 [facility] Meningococcal 2012-02-15 Completed University of Vaccine 00:00:00 [facility] Meningococcal 2012-02-15 Completed University of Vaccine 00:00:00 [facility] Meningococcal 2012-02-15 Completed University of Vaccine 00:00:00 [facility] Meningococcal 2012-02-15 Completed University of Vaccine 00:00:00 [facility] Meningococcal 2012-02-15 Completed University of Vaccine 00:00:00 [facility] Meningococcal 2012-02-15 Completed University of Vaccine 00:00:00 [facility] Meningococcal 2012-02-15 Completed University of Vaccine 00:00:00 [facility] Meningococcal 2012-02-15 Completed University of Vaccine 00:00:00 [facility] Meningococcal 2012-02-15 Completed University of Vaccine 00:00:00 [facility] Meningococcal 2012-02-15 Completed University of Vaccine 00:00:00 [facility] Meningococcal 2012-02-15 Completed University of Vaccine 00:00:00 [facility] Meningococcal 2012-02-15 Completed University of Vaccine 00:00:00 [facility] Meningococcal 2012-02-15 Completed University of Vaccine 00:00:00 [facility] HPV 2008-03-06 Completed University of 00:00:00 [facility] HPV 2008-03-06 Completed University of 00:00:00 [facility] HPV 2008-03-06 Completed University of 00:00:00 [facility] HPV 2008-03-06 Completed University of 00:00:00 [facility] HPV 2008-03-06 Completed University of 00:00:00 [facility] HPV 2008-03-06 Completed University of 00:00:00 [facility] HPV 2008-03-06 Completed University of 00:00:00 [facility] HPV 2008-03-06 Completed University of 00:00:00 [facility] HPV 2008-03-06 Completed University of 00:00:00 [facility] HPV 2008-03-06 Completed University of 00:00:00 [facility] HPV 2008-03-06 Completed University of 00:00:00 [facility] HPV 2008-03-06 Completed [facility] of 00:00:00 [place] [facility] HPV 2008-03-06 Completed [facility] of 00:00:00 [place] [facility] HPV 2008-03-06 Completed [facility] of 00:00:00 [place] [facility] HPV 2008-03-06 Completed [facility] of 00:00:00 [place] [facility] HPV 2008-03-06 Completed [facility] of 00:00:00 [place] [facility] HPV 2008-03-06 Completed [facility] of 00:00:00 [place] [facility] HPV 2008-03-06 Completed [facility] of 00:00:00 [place] [facility] HPV 2008-03-06 Completed [facility] of 00:00:00 [place] [facility] HPV 2008-03-06 Completed [facility] of 00:00:00 [place] [facility] HPV 2008-03-06 Completed [facility] of 00:00:00 [place] [facility] HPV 2008-03-06 Completed [facility] of 00:00:00 [place] [facility] HPV 2008-03-06 Completed [facility] of 00:00:00 [place] [facility] HPV 2008-03-06 Completed [facility] of 00:00:00 [place] [facility] HPV 2008-03-06 Completed [facility] of 00:00:00 [place] [facility] HPV 2008-03-06 Completed [facility] 00:00:00 [place] [facility] HPV 2008-03-06 Completed [facility] 00:00:00 [place] [facility] HPV 2008-03-06 Completed [facility] of 00:00:00 [place] [facility] HPV 2008-03-06 Completed [facility] of 00:00:00 [place] [facility] HPV 2008-03-06 Completed [facility] of 00:00:00 [place] [facility] HPV 2008-03-06 Completed [facility] of 00:00:00 [place] [facility] HPV 2007-03-13 Completed [facility] of 00:00:00 [place] [facility] HPV 2007-03-13 Completed [facility] of 00:00:00 [place] [facility] HPV 2007-03-13 Completed [facility] of 00:00:00 [place] [facility] HPV 2007-03-13 Completed [facility] of 00:00:00 [place] [facility] HPV 2007-03-13 Completed [facility] of 00:00:00 [place] [facility] HPV 2007-03-13 Completed [facility] of 00:00:00 [place] [facility] HPV 2007-03-13 Completed [facility] of 00:00:00 [place] [facility] HPV 2007-03-13 Completed [facility] of 00:00:00 [place] [facility] HPV 2007-03-13 Completed [facility] of 00:00:00 [place] [facility] HPV 2007-03-13 Completed [facility] of 00:00:00 [place] [facility] HPV 2007-03-13 Completed [facility] of 00:00:00 [place] [facility] HPV 2007-03-13 Completed [facility] of 00:00:00 [place] [facility] HPV 2007-03-13 Completed [facility] of 00:00:00 [place] [facility] HPV 2007-03-13 Completed [facility] of 00:00:00 [place] [facility] HPV 2007-03-13 Completed [facility] of 00:00:00 [place] [facility] HPV 2007-03-13 Completed [facility] of 00:00:00 [place] [facility] HPV 2007-03-13 Completed [facility] of 00:00:00 [place] [facility] HPV 2007-03-13 Completed [facility] of 00:00:00 [place] [facility] HPV 2007-03-13 Completed [facility] of 00:00:00 [place] [facility] HPV 2007-03-13 Completed [facility] of 00:00:00 [place] [facility] HPV 2007-03-13 Completed [facility] of 00:00:00 [place] [facility] HPV 2007-03-13 Completed [facility] of 00:00:00 [place] [facility] HPV 2007-03-13 Completed [facility] of 00:00:00 [place] [facility] HPV 2007-03-13 Completed [facility] of 00:00:00 [place] [facility] HPV 2007-03-13 Completed [facility] of 00:00:00 [place] [facility] HPV 2007-03-13 Completed [facility] of 00:00:00 [place] [facility] HPV 2007-03-13 Completed [facility] of 00:00:00 [place] [facility] HPV 2007-03-13 Completed [facility] of 00:00:00 [place] [facility] HPV 2007-03-13 Completed [facility] of 00:00:00 [place] [facility] HPV 2007-03-13 Completed [facility] of 00:00:00 [place] [facility] HPV 2007-03-13 Completed [facility] of 00:00:00 [place] [facility] HPV 2007-01-11 Completed [facility] of 00:00:00 [place] [facility] HPV 2007-01-11 Completed [facility] of 00:00:00 [place] [facility] HPV 2007-01-11 Completed [facility] of 00:00:00 [place] [facility] HPV 2007-01-11 Completed [facility] of 00:00:00 [place] [facility] HPV 2007-01-11 Completed [facility] of 00:00:00 [place] [facility] HPV 2007-01-11 Completed [facility] of 00:00:00 [place] [facility] HPV 2007-01-11 Completed [facility] of 00:00:00 [place] [facility] HPV 2007-01-11 Completed [facility] of 00:00:00 [place] [facility] HPV 2007-01-11 Completed [facility] of 00:00:00 [place] [facility] HPV 2007-01-11 Completed [facility] of 00:00:00 [place] [facility] HPV 2007-01-11 Completed [facility] of 00:00:00 [place] [facility] HPV 2007-01-11 Completed [facility] of 00:00:00 [place] [facility] HPV 2007-01-11 Completed [facility] of 00:00:00 [place] [facility] HPV 2007-01-11 Completed [facility] of 00:00:00 [place] [facility] HPV 2007-01-11 Completed [facility] of 00:00:00 [place] [facility] HPV 2007-01-11 Completed [facility] of 00:00:00 [place] [facility] HPV 2007-01-11 Completed [facility] of 00:00:00 [place] [facility] HPV 2007-01-11 Completed [facility] of 00:00:00 [place] [facility] HPV 2007-01-11 Completed [facility] of 00:00:00 [place] [facility] HPV 2007-01-11 Completed [facility] of 00:00:00 [place] [facility] HPV 2007-01-11 Completed [facility] of 00:00:00 [place] [facility] HPV 2007-01-11 Completed [facility] of 00:00:00 [place] [facility] HPV 2007-01-11 Completed [facility] of 00:00:00 [place] [facility] HPV 2007-01-11 Completed [facility] of 00:00:00 [place] [facility] HPV 2007-01-11 Completed [facility] of 00:00:00 [place] [facility] HPV 2007-01-11 Completed [facility] of 00:00:00 [place] [facility] HPV 2007-01-11 Completed [facility] of 00:00:00 [place] [facility] HPV 2007-01-11 Completed [facility] of 00:00:00 [place] [facility] HPV 2007-01-11 Completed [facility] of 00:00:00 [place] [facility] HPV 2007-01-11 Completed [facility] of 00:00:00 [place] [facility] HPV 2007-01-11 Completed University of 00:00:00 [place] [facility] HEPATITIS A 2006-06-22 Completed University of 00:00:00 [place] [facility] HEPATITIS A 2006-06-22 Completed [facility] of 00:00:00 [place] [facility] HEPATITIS A 2006-06-22 Completed [facility] of 00:00:00 [place] [facility] HEPATITIS A 2006-06-22 Completed [facility] of 00:00:00 [facility] HEPATITIS A 2006-06-22 Completed [facility] of 00:00:00 [place] [facility] HEPATITIS A 2006-06-22 Completed [facility] of 00:00:00 [place] [facility] HEPATITIS A 2006-06-22 Completed [facility] of 00:00:00 [facility] HEPATITIS A 2006-06-22 Completed [facility] of 00:00:00 [place] [facility] HEPATITIS A 2006-06-22 Completed [facility] of 00:00:00 [place] [facility] HEPATITIS A 2006-06-22 Completed [facility] of 00:00:00 [place] [facility] HEPATITIS A 2006-06-22 Completed [facility] of 00:00:00 [place] [facility] HEPATITIS A 2006-06-22 Completed [facility] of 00:00:00 [place] [facility] HEPATITIS A 2006-06-22 Completed University of 00:00:00 [place] [facility] HEPATITIS A 2006-06-22 Completed University of 00:00:00 [facility] HEPATITIS A 2006-06-22 Completed University of 00:00:00 [facility] HEPATITIS A 2006-06-22 Completed University of 00:00:00 [facility] HEPATITIS A 2006-06-22 Completed University of 00:00:00 [facility] HEPATITIS A 2006-06-22 Completed University of 00:00:00 [facility] HEPATITIS A 2006-06-22 Completed University of 00:00:00 [facility] HEPATITIS A 2006-06-22 Completed University of 00:00:00 [facility] HEPATITIS A 2006-06-22 Completed University of 00:00:00 [facility] HEPATITIS A 2006-06-22 Completed University of 00:00:00 [facility] HEPATITIS A 2006-06-22 Completed University of 00:00:00 [facility] HEPATITIS A 2006-06-22 Completed University of 00:00:00 [facility] HEPATITIS A 2006-06-22 Completed University of 00:00:00 [facility] HEPATITIS A 2006-06-22 Completed University of 00:00:00 [facility] HEPATITIS A 2006-06-22 Completed University of 00:00:00 [facility] HEPATITIS A 2006-06-22 Completed University of 00:00:00 [facility] HEPATITIS A 2006-06-22 Completed University of 00:00:00 [facility] HEPATITIS A 2006-06-22 Completed University of 00:00:00 [facility] HEPATITIS A 2006-06-22 Completed University of 00:00:00 [facility] Meningococcal 2005-12-07 Completed University of Vaccine 00:00:00 [facility] Tdap 2005-12-07 Completed University of 00:00:00 [facility] HEPATITIS A 2005-12-07 Completed University of 00:00:00 [facility] Meningococcal 2005-12-07 Completed University of Vaccine 00:00:00 [facility] Tdap 2005-12-07 Completed University of 00:00:00 [facility] HEPATITIS A 2005-12-07 Completed University of 00:00:00 [facility] Meningococcal 2005-12-07 Completed University of Vaccine 00:00:00 [facility] Tdap 2005-12-07 Completed University of 00:00:00 [facility] HEPATITIS A 2005-12-07 Completed University of 00:00:00 [facility] Meningococcal 2005-12-07 Completed University of Vaccine 00:00:00 [facility] Tdap 2005-12-07 Completed University of 00:00:00 [facility] HEPATITIS A 2005-12-07 Completed University of 00:00:00 [facility] HEPATITIS A 2005-12-07 Completed University of 00:00:00 [facility] Meningococcal 2005-12-07 Completed University of Vaccine 00:00:00 [facility] Tdap 2005-12-07 Completed University of 00:00:00 [facility] Meningococcal 2005-12-07 Completed University of Vaccine 00:00:00 [facility] Tdap 2005-12-07 Completed University of 00:00:00 [facility] HEPATITIS A 2005-12-07 Completed University of 00:00:00 [facility] Meningococcal 2005-12-07 Completed University of Vaccine 00:00:00 [facility] Tdap 2005-12-07 Completed University of 00:00:00 [facility] HEPATITIS A 2005-12-07 Completed University of 00:00:00 [facility] Meningococcal 2005-12-07 Completed University of Vaccine 00:00:00 [facility] Tdap 2005-12-07 Completed University of 00:00:00 [facility] HEPATITIS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 RT(R)(CT) Trnscb Date/Time: 11/17/2020 (1853) tOSCARRTaeMVT Orig Print D/T: S: 11/17/2020 (078) PAGE 2 Signed Report COMPREHENSIVE METABOLIC PANEL 2020-11-17 17:45:00 Test Item Value Reference Range Interpretation Comme nts SODIUM (test code = NA) 137 mmol/L 134-147 N POTASSIUM (test code = K) 3.5 mmol/L 3.4-5.0 N CHLORIDE (test code = CL) 107 mmol/L 100-108 N CARBON DIOXIDE (test code = CO2) 27 mmol/L 21-32 N ANION GAP (test code = GAP) 3.0 GAP calc 4.0-15.0 L GLUCOSE (test code = GLU) 109 MG/DL 70-110 N BLOOD UREA NITROGEN (test code = BUN) 10 MG/DL 7-18 N GLOMERULAR FILTRATION RATE (test code = GFR) >=60 max estimate estG FR >60 CREATININE (test code = CREAT) 0.6 MG/DL 0.6-1.0 N TOTAL PROTEIN (test code = PROT) 8.3 G/DL 6.4-8.2 H ALBUMIN (test code = ALB) 3.8 G/DL 3.4-5.0 N GLOBULIN (test code = GLOB) 4.5 GM/dL ALBUMIN/GLOBULIN RATIO (test code = A/G) 0.8 RATIO 1.2-2.2 L CALCIUM (test code = CA) 8.7 MG/DL 8.5-10.1 N BILIRUBIN TOTAL (test code = BILT) 0.30 MG/DL 0.2-1.2 N SGOT/AST (test code = AST) 14 Unit/L 15-37 L SGPT/ALT (test code = ALT) 28 Unit/L 12-78 N ALKALINE PHOSPHATASE TOTAL (test code = ALKP) 120 Unit/L 45-117 H HCG SERUM [id number] 17:07:00 Test Item Value Reference Range Interpretation Comments HCG SERUM QUAL (test SERUM NEGATIVE SCREEN NEGATIVE code = HCGQL) POCT [id number] 17:00:00 Test Item Value Reference Range Interpretation Comments POCT PREG (test code = 1605) Negative On board controls acceptable with C Yes Line (test code = 3574) POCT PREG LOT # (test code = 3575) POCT PREG TEST DATE (test code = 3576) [facility] [id number] 17:00:00 Test Item Value Reference Range Interpretation Comments POCT PREG (test code = 1605) Negative On board controls acceptable with C Yes Line (test code = 3574) POCT PREG LOT # (test code = 3575) POCT PREG TEST DATE (test code = 3576) [facility] [id number] 17:00:00 Test Item Value Reference Range Interpretation Comments POCT PREG (test code = 1605) Negative On board controls acceptable with C Yes Line (test code = 3574) POCT PREG LOT # (test code = 3575) POCT PREG TEST DATE (test code = 3576) [facility] 16:28:00 Test Item Value Reference Range Interpretation Comments RPR (Quantitative) (test code = Nonreactive Nonreactive 83190-1) Lab Interpretation (test code = Normal 79613-9) [facility]CBC WITH [id number] 08:30:00 Test Item Value Reference Range Interpretation Comments WBC (test code = See_Comment H [Automated 5590-2) message] The system which generated this result transmit barbara reference range : 4.30 - 11.10 10*3/?L. The reference range was not used to interpret this result as normal/abnormal . RBC (test code = See_Comment L [Automated 789-8) message] The system which generated this result transmit barbara reference range : 3.93 - 5.25 10*6/?L. The reference range was not used to interpret this result as normal/abnormal . HGB (test code = 9.8 g/dL 11.6-15 L 718-7) HCT (test code = 30.7 % 35.7-45.2 L 4544-3) MCV (test code = 83.0 fL 80.6-95.5 787-2) MCH (test code = 26.5 pg 25.9-32.8 785-6) MCHC (test code = 31.9 g/dL 31.6-35.1 786-4) RDW-SD (test code = 42.0 fL 39-49.9 42286-6) RDW-CV (test code = 14.0 % 12-15.5 788-0) PLT (test code = See_Comment [Automated 777-3) message] The system which generated this result transmit barbara reference range : 166 - 358 10*3/ ?L. The reference range was not u sed to interpret th is result as normal/abnormal . MPV (test code = 11.1 fL 9.5-12.9 68652-2) NRBC/100 WBC (test See_Comment [Automat ed code = 3814231877) message] The system which generated this result transmit barbara reference range : 0.0 - 10.0 /100 WBCs. The reference range was not used to interpret this result as normal/abnormal . NRBC x10^3 (test code <0.01 See_Comment [Auto mated = 3720242720) message] The system which generated this result transmit barbara reference range : 10*3/?L. The reference range was not used to interpret this result as normal/abnormal . GRAN MAT (NEUT) % 74.3 % (test code = 770-8) IMM GRAN % (test code 0.60 % = 0691799241) LYMPH % (test code = 18.7 % 736-9) MONO % (test code = 6.0 % 5905-5) EOS % (test code = 0.3 % 713-8) BASO % (test code = 0.1 % 706-2) GRAN MAT x10^3(ANC) 10.70 10*3/uL 1.88-7.09 H (test code = 2858448695) IMM GRAN x10^3 (test 0.09 10*3/uL 0-0.06 H code = 1487225126) LYMPH x10^3 (test code 2.70 10*3/uL 1.32-3.29 = 731-0) MONO x10^3 (test code 0.87 10*3/uL 0.33-0.92 = 742-7) EOS x10^3 (test code = 0.05 10*3/uL 0.03-0.39 711-2) BASO x10^3 (test code <0.03 0.01-0.07 = 704-7) Lab Interpretation Abnormal (test code = 68615-6) [facility]D) IMMUNE [id number] 06:47:17 Test Item Value Reference Range Interpretation Comments RHIG CANDIDATE? No- see comment Patient i s not a (test code = candidate for R hIg- 5055) Patient is Rh Positive.Perfor med at [facility] Laboratory Services - [facility] Blood [address] [place] [address]Vhla Free: [phone] A No. [id number] [facility] CenterHepatitis B Surface [id number] 19:47:00 Test Item Value Reference Range Interpretation Comments HBsAg Semi-Quantitative (test code = Negative Negative 5195-3) [facility] CenterType and Screen - ONCE [id number] 19:18:02 Test Item Value Reference Range Interpretation Comments ABO & RH (test code O POSITIVE Performe d at [facility] = 20) Laboratory Serv [facility] Blood [facility] [facility] [address]Kpmx Free: [phone] A No. [id number] IAT (test code = Negative Performed a t [facility] 1185) Laboratory Serv [facility] Blood [facility] [facility] [address]Eccv Free: [phone] A No. [id number] [facility] URINALYSIS W SPECIFIC [id number] 21:00:00 Test Item Value Reference Range Interpretation Comments POCT U SP GRAV (test code = . 1.005-1.025 3255) POCT PH U (test code = 3254) 6 mg/dl 5-8 POCT U LEUK EST (test code = neg Negative - Negative 3263) POCT U NIT (test code = 3262) neg Negative - Negative POCT U PROT (test code = 3259) trace Negative - Negative POCT U GLU (test code = 3256) neg Negative - Negative POCT U KETONE (test code = 3258) neg Negative - Negative POCT U UROBILI (test code = . 0.2-1 3260) POCT U BILI (test code = 3261) . Negative - Negative POCT U BLD (test code = 3257) neg Negative - Negative POCT U COLOR (test code = 3266) POCT U APPEAR (test code = 3267) Lab Interpretation (test code = Abnormal 69217-6) [facility] URINALYSIS W SPECIFIC [id number] 21:00:00 Test Item Value Reference Range Interpretation Comments POCT U SP GRAV (test code = . 1.005-1.025 3255) POCT PH U (test code = 3254) 6 mg/dl 5-8 POCT U LEUK EST (test code = neg Negative - Negative 3263) POCT U NIT (test code = 3262) neg Negative - Negative POCT U PROT (test code = 3259) trace Negative - Negative POCT U GLU (test code = 3256) neg Negative - Negative POCT U KETONE (test code = 3258) neg Negative - Negative POCT U UROBILI (test code = . 0.2-1 3260) POCT U BILI (test code = 3261) . Negative - Negative POCT U BLD (test code = 3257) neg Negative - Negative POCT U COLOR (test code = 3266) POCT U APPEAR (test code = 3267) Lab Interpretation (test code = Abnormal 57357-0) [facility] URINALYSIS W SPECIFIC [id number] 20:48:00 Test Item Value Reference Range Interpretation Comments POCT U SP GRAV (test code = 3255) . 1.005-1.025 POCT PH U (test code = 3254) . 5-8 POCT U LEUK EST (test code = 3263) . Negative - Negative POCT U NIT (test code = 3262) . Negative - Negative POCT U PROT (test code = 3259) Trace Negative - Negative POCT U GLU (test code = 3256) Neg Negative - Negative POCT U KETONE (test code = 3258) . Negative - Negative POCT U UROBILI (test code = 3260) . 0.2-1 POCT U BILI (test code = 3261) . Negative - Negative POCT U BLD (test code = 3257) . Negative - Negative POCT U COLOR (test code = 3266) POCT U APPEAR (test code = 3267) [facility] URINALYSIS W SPECIFIC [id number] 21:04:00 Test Item Value Reference Range Interpretation Comments POCT U SP GRAV (test code = * 1.005-1.025 3255) POCT PH U (test code = 3254) * 5-8 POCT U LEUK EST (test code = * Negative - Negative 3263) POCT U NIT (test code = 3262) * Negative - Negative POCT U PROT (test code = 3259) NEGATIVE Negative - Negative POCT U GLU (test code = 3256) NEGATIVE Negative - Negative POCT U KETONE (test code = 3258) * Negative - Negative POCT U UROBILI (test code = * 0.2-1 3260) POCT U BILI (test code = 3261) Negative - Negative POCT U BLD (test code = 3257) * Negative - Negative POCT U COLOR (test code = 3266) * POCT U APPEAR (test code = 3267) * [facility] URINALYSIS W SPECIFIC [id number] 21:04:00 Test Item Value Reference Range Interpretation Comments POCT U SP GRAV (test code = * 1.005-1.025 3255) POCT PH U (test code = 3254) * 5-8 POCT U LEUK EST (test code = * Negative - Negative 3263) POCT U NIT (test code = 3262) * Negative - Negative POCT U PROT (test code = 3259) NEGATIVE Negative - Negative POCT U GLU (test code = 3256) NEGATIVE Negative - Negative POCT U KETONE (test code = 3258) * Negative - Negative POCT U UROBILI (test code = * 0.2-1 3260) POCT U BILI (test code = 3261) Negative - Negative POCT U BLD (test code = 3257) * Negative - Negative POCT U COLOR (test code = 3266) * POCT U APPEAR (test code = 3267) * [facility] SPECIFIC [id number] 19:41:00 Test Item Value Reference Range Interpretation Comments POCT U SP GRAV (test code = 3255) . 1.005-1.025 POCT PH U (test code = 3254) . 5-8 POCT U LEUK EST (test code = 3263) . Negative - Negative POCT U NIT (test code = 3262) . Negative - Negative POCT U PROT (test code = 3259) Trace Negative - Negative POCT U GLU (test code = 3256) Neg Negative - Negative POCT U KETONE (test code = 3258) . Negative - Negative POCT U UROBILI (test code = 3260) . 0.2-1 POCT U BILI (test code = 3261) . Negative - Negative POCT U BLD (test code = 3257) . Negative - Negative POCT U COLOR (test code = 3266) POCT U APPEAR (test code = 3267) [facility]
[2021-10-01] MEDS ORDERED: MORPHINE 4 MG/ML SYR ONE (12:06)
[2021-10-01] MEDS ORDERED: ONDANSETRON 4 MG/2 ML VIAL ONE (12:06)
[2021-10-01 12:30] LABS: Protime INR 0.99
[2021-10-01 12:32] LABS: Hematocrit 40.3 % (36.0-45.0); Lymphocytes % 17.5 % (15.3-44.8); MPV 8.3 fL (7.6-11.3); RBC Red Blood Cell Count 5.13 M/uL (3.86-4.86)
[2021-10-01 12:35] LABS: ALT/SGPT 31 U/L (12-78); AST/SGOT 18 U/L (15-37); Albumin 3.7 g/dL (3.4-5.0); Alkaline Phosphatase 109 U/L (45-117); BUN Blood Urea Nitrogen 9 mg/dL (7-18); Bicarbonate 25 mmol/L (21-32); Bilirubin Direct 0.1 mg/dL (0-0.2); Bilirubin Total 0.4 mg/dL (0.2-1.0); Glomerular Filtration Rate 122 ml/min (=/>90); Glucose Level 93 mg/dL (74-106); Magnesium 2.1 mg/dL (1.8-2.4); NT PRO-BNP 6 pg/mL (<125); Potassium 3.9 mmol/L (3.5-5.1); Protein, Total 8.1 g/dL (6.4-8.2); Sodium Level 135 mmol/L (136-145)
[2021-10-01 12:37] LABS: Troponin High Sensitivity < 3.0 pg/mL (<58.9)
--- NOTE | 2021-10-01 13:02 | RAD REPORT ---
EXAM DESCRIPTION: RAD - Chest Single View - 10/01/2021 12:55 pm CLINICAL HISTORY: CHEST PAIN COMPARISON: No comparisons FINDINGS: Lines: None. Lungs: No evidence of edema or pneumonia. Pleural: No significant pleural effusions or pneumothorax. Cardiac: The heart size is within normal limits. Bones: No acute fractures. Other: IMPRESSION: No acute cardiopulmonary disease.
--- NOTE | 2021-10-01 13:32 | ER ---
Nurse's Notes [facility] Name: Emilia Goldstein Age: 26 yrs Sex: Female : 1995 Arrival Date: 10/01/2021 Time: 11:34 Bed 14 Private MD: Diagnosis: Chest pain, unspecified Presentation: 10/01 11:42 Chief complaint: Patient states: has really sharp pain in left side of chest and has iw numbness in left arm from elbow up to shoulder , her left leg was numb before she got here but now it's back to normal . started with chest pains at 1150 then the other symptoms started , had a similar episode last week in the left side of her head , had sharp pain in her head. Coronavirus screen: At this time, the client does not indicate any symptoms associated with coronavirus-19. Ebola Screen: Patient negative for fever greater than or equal to 101.5 degrees Fahrenheit, and additional compatible Ebola Virus Disease symptoms Patient denies exposure to infectious person. Patient denies travel to an Ebola-affected area in the 21 days before illness onset. No symptoms or risks identified at this time. Initial Sepsis Screen: Does the patient meet any 2 criteria? No. Patient's initial sepsis screen is negative. Does the patient have a suspected source of infection? No. Patient's initial sepsis screen is negative. Risk Assessment: Do you want to hurt yourself or someone else? Patient reports no desire to harm self or others. Onset of symptoms was October 01, 2021. 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 - Social history:: Smoking status: Patient denies any tobacco usage or history of. - Family history:: not pertinent. Screenin:54 Abuse screen: Denies threats or abuse. Denies injuries from another. Nutritional ph screening: No deficits noted. Tuberculosis screening: No symptoms or risk factors identified. Fall Risk None identified. Assessment: 12:02 General: Appears in no apparent distress. Behavior is calm, cooperative, appropriate ph for age. Pain: Complains of pain in anterior aspect of left upper chest Pain radiates to left arm Quality of pain is described as sharp, stabbing. Neuro: Level of Consciousness is awake, alert, obeys commands, Oriented to person, place, time, situation, Reports numbness in anterior aspect of left shoulder, left bicep and left antecubital area. Cardiovascular: Reports chest pain, Denies nausea, palpitations, shortness of breath, vomiting, Capillary refill < 3 seconds in bilateral fingers Patient's skin is warm and dry. Rhythm is sinus rhythm Chest pain quality is sharp, stabbing, is located in left anterior chest wall radiates to left arm(s). Respiratory: Airway is patent Respiratory effort is even, unlabored. Derm: Skin is intact, is healthy with good turgor, Skin is pink, warm \T\ dry. Musculoskeletal: Circulation, motion, and sensation intact. Range of motion: intact in all extremities. 13:00 Reassessment: Patient appears in no apparent distress at this time. Patient and/or ph family updated on plan of care and expected duration. Pain level reassessed. Patient is alert, oriented x 3, equal unlabored respirations, skin warm/dry/pink. Vital Signs: 11:42 BP 119 / 78; Pulse 86; Resp 16; Temp 98.6; Pulse Ox 100% on R/A; Weight 92.99 kg; iw Height 5 ft. 6 in. (167.64 cm); Pain 8/10; 13:00 BP 108 / 78; Pulse 81; Resp 18; Temp 97.9; Pulse Ox 99% on R/A; ph 11:42 Body Mass Index 33.09 (92.99 kg, 167.64 cm) iw ED Course: 11:34 Patient arrived in ED. rg4 11:45 Triage completed. iw 11:50 Shilpa Elizondo, LORY is Primary Nurse. ph 11:50 Gomez Wood MD is Attending Physician. ma2 11:54 Arm band placed on Patient placed in an exam room, on a stretcher. ph 12:00 Placed in gown. Bed in low position. Call light in reach. Side rails up X 1. Door mb7 closed. Noise minimized. Warm blanket given. 12:00 EKG done, by ED staff, reviewed by Gomez Wood MD. mb7 12:04 Client placed on continuous cardiac and pulse oximetry monitoring. NIBP monitoring ph applied. 12:04 No provider procedures requiring assistance completed. Patient maintains SpO2 ph saturation greater than 95% on room air. 12:04 Basic Metabolic Panel Sent. zm 12:04 CBC with Diff Sent. zm 12:04 LFT's Sent. zm 12:04 Magnesium Sent. zm 12:04 NT PRO-BNP Sent. zm 12:04 PT-INR Sent. zm 12:05 Troponin HS Sent. zm 12:57 XRAY Chest (1 view) In Process Unspecified. EDMS 13:59 IV discontinued, intact, Pressure dressing applied. ponce Administered Medications: 12:05 Drug: Zofran (Ondansetron) 4 mg Route: IVP; Site: right antecubital; ph 12:30 Follow up: Response: No adverse reaction ph 12:08 Drug: morphine 4 mg Route: IVP; Infused Over: 4 mins; Site: right antecubital; ph 12:30 Follow up: Response: No adverse reaction; Pain is decreased; RASS: Alert and Calm (0) ph Medication: 12:04 VIS not applicable for this client. ph Outcome: 13:32 Discharge ordered by . arnold 13:59 Discharged to home via ambulance. ponce 13:59 Condition: good 13:59 Discharge instructions given to patient. 14:01 Patient left the ED. ponce Signatures: Dispatcher [employer] EDFabby Middleton RN RN iw Hall, Patricia, RN RN ph Garcia, Rubi rg4 Gomez Wood MD MD ma2 Breneman, Mary mb7 Toya Ramirez RN RN ha Martinez, Zaina zm
--- NOTE | 2021-10-01 13:32 | EDPHYS ---
Physician Documentation [facility] Name: Emilia Goldstein Age: 26 yrs Sex: Female : 1995 Arrival Date: 10/01/2021 Time: 11:34 Bed 14 Private MD: ED Physician Gomez Wood HPI: 10/01 13:30 This 26 yrs old Female presents to ER via Wheelchair with complaints of Chest ma2 Pain, Numbness Of Arm, Numbness Of Leg. 13:30 The pressure, deep breathing, coughing and laughing, chest pain is reproducible when ma2 she touches the left chest wall, pain worse when she twists her chest or left side,. 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 - Social history:: Smoking status: Patient denies any tobacco usage or history of. - Family history:: not pertinent. ROS: 13:30 Constitutional: Negative for fever, chills, and weight loss, MS/Extremity: Negative for ma2 injury and deformity. 13:30 All other systems are negative. Exam: 13:30 Constitutional: This is a well developed, well nourished patient who is awake, alert, ma2 and in no acute distress. Head/Face: Normocephalic, atraumatic. Eyes: Pupils equal round and reactive to light, extra-ocular motions intact. Lids and lashes normal. Conjunctiva and sclera are non-icteric and not injected. Cornea within normal limits. Periorbital areas with no swelling, redness, or edema. ENT: Nares patent. No nasal discharge, no septal abnormalities noted. Tympanic membranes are normal and external auditory canals are clear. Oropharynx with no redness, swelling, or masses, exudates, or evidence of obstruction, uvula midline. Mucous membranes moist. Neck: Trachea midline, no thyromegaly or masses palpated, and no cervical lymphadenopathy. Supple, full range of motion without nuchal rigidity, or vertebral point tenderness. No Meningismus. Chest/axilla: Tenderness on left chest, otherwise normal mal chest wall appearance and motion. Nontender with no deformity. No lesions are appreciated. Cardiovascular: Regular rate and rhythm with a normal S1 and S2. No gallops, murmurs, or rubs. Normal PMI, no JVD. No pulse deficits. Respiratory: Lungs have equal breath sounds bilaterally, clear to auscultation and percussion. No rales, rhonchi or wheezes noted. No increased work of breathing, no retractions or nasal flaring. Abdomen/GI: Soft, non-tender, with normal bowel sounds. No distension or tympany. No guarding or rebound. No evidence of tenderness throughout. Back: No spinal tenderness. No costovertebral tenderness. Full range of motion. Skin: Warm, dry with normal turgor. Normal color with no rashes, no lesions, and no evidence of cellulitis. MS/ Extremity: Pulses equal, no cyanosis. Neurovascular intact. Full, normal range of motion. Neuro: Awake and alert, GCS 15, oriented to person, place, time, and situation. Cranial nerves II-XII grossly intact. Motor strength 5/5 in all extremities. Sensory grossly intact. Cerebellar exam normal. Normal gait. Vital Signs: 11:42 BP 119 / 78; Pulse 86; Resp 16; Temp 98.6; Pulse Ox 100% on R/A; Weight 92.99 kg; iw Height 5 ft. 6 in. (167.64 cm); Pain 8/10; 13:00 BP 108 / 78; Pulse 81; Resp 18; Temp 97.9; Pulse Ox 99% on R/A; ph 11:42 Body Mass Index 33.09 (92.99 kg, 167.64 cm) iw MDM: 11:51 Patient medically screened. ma2 13:30 Differential diagnosis: abnormal EKG, anxiety, chest wall pain. Data reviewed: vital ma2 signs, nurses notes. Counseling: I had a detailed discussion with the patient and/or guardian regarding: the historical points, exam findings, and any diagnostic results supporting the discharge/admit diagnosis, the presence of at least one elevated blood pressure reading (>120/80) during this emergency department visit, the need for outpatient follow up. 13:32 ED course: perc negative CASSIUS score 0. ma2 10/01 11:50 Order name: Basic Metabolic Panel; Complete Time: 12:52 10/01 11:50 Order name: CBC with Diff; Complete Time: 12:52 10/01 11:50 Order name: LFT's; Complete Time: 12:52 10/01 11:50 Order name: Magnesium; Complete Time: 12:52 10/01 11:50 Order name: NT PRO-BNP; Complete Time: 12:52 10/01 11:50 Order name: PT-INR; Complete Time: 12:52 10/01 11:50 Order name: Troponin HS; Complete Time: 12:52 10/01 11:50 Order name: XRAY Chest (1 view); Complete Time: 13:30 10/01 11:50 Order name: EKG; Complete Time: 11:51 10/01 11:50 Order name: Cardiac monitoring; Complete Time: 12:00 10/01 11:50 Order name: EKG - Nurse/Tech; Complete Time: 12:00 10/01 11:50 Order name: IV Saline Lock; Complete Time: 12:04 10/01 11:50 Order name: Labs collected and sent; Complete Time: 12:04 10/01 11:50 Order name: O2 Per Protocol; Complete Time: 12:00 10/01 11:50 Order name: O2 Sat Monitoring; Complete Time: 12:00 Administered Medications: 12:05 Drug: Zofran (Ondansetron) 4 mg Route: IVP; Site: right antecubital; ph 12:30 Follow up: Response: No adverse reaction ph 12:08 Drug: morphine 4 mg Route: IVP; Infused Over: 4 mins; Site: right antecubital; ph 12:30 Follow up: Response: No adverse reaction; Pain is decreased; RASS: Alert and Calm (0) ph Disposition Summary: 10/01/21 13:32 Discharge Ordered Location: Home ma2 Condition: Stable ma2 Diagnosis - Chest pain, unspecified ma2 Followup: ma2 - With: Private Physician - When: Tomorrow - Reason: Continuance of care Discharge Instructions: - Discharge Summary Sheet ma2 - Nonspecific Chest Pain, Adult ma2 Forms: - Medication Reconciliation Form ma2 - Thank You Letter ma2 - Antibiotic Education ma2 - Prescription Opioid Use ma2 - Work release form ponce Signatures: Dispatcher [employer] Fabby Mendoza RN RN iw Hall, Patricia, RN RN Gomez Wood MD MD wy2
[2021-10-01 14:17] VITALS: BP 119/78; TEMP 98.6; O2SAT 100
--- NOTE | 2021-10-04 11:59 | EKG ---
Test Date: 2021-10-01 Test Time: 11:53:00 Lan Engineer: MB MEASUREMENT RESULTS: Intervals: Rate: 84 MS: 136 QRSD: 82 QT: 352 QTc: 415 Bascom: P: 64 MS: 136 QRS: 51 T: 43 INTERPRETIVE STATEMENTS: Normal sinus rhythm Normal ECG No previous ECG available for comparison Electronically Signed On 10-04-21 11:52:12 CDT by Oscar Callejas
== END 2021-10-01 14:01 | disposition home or self-care (01) ==
LOC: ER 11:33
DX: R07.9 Chest pain, unspecified (principal); Z87.442 Personal history of urinary calculi
CPT/HCPCS: 93005; 85025; 80048; 36415; 83735; 85610; 80076; 84484; 83880; 71045; 96375; 96374; 99285; J2405